=== PATIENT | female | born 1945 | race Caucasian/White ===

== ENCOUNTER 2017-08-11 17:22 | Emergency (ER) | payer OTHER ==
[2017-08-11 17:35] VITALS: BP 147/67; PULSE 79; TEMP 98.5; BMI 30.2
--- NOTE | 2017-08-11 18:09 | PDOC ---
History of Present Illness - General Chief Complaint: Injury Stated Complaint: FELL ON HEAD ON MONDAY Time Seen by Provider: 08/11/17 17:24 History Source: Patient Exam Limitations: No Limitations - History of Present Illness Initial Comments: 08/11/17 18:03 Patient is a 72F with history of bipolar disorder, possible dementia, HTN, and bladder cancer here today complaining of a headache after a fall. She fell at 6am on Monday, 60 hours ago, and hit her head. She denies neck pain, loss of consciousness memory loss, vomiting after the event. She states that it was a mechanical fall because she lost her balance after taking klonopin. She states that she's been able to walk since the event. She denies any prodromal symptoms , including chest pain, shortness of breath, and dizziness. Past History - Past Medical History Allergies/Adverse Reactions: Allergies Allergy/AdvReac Type Severity Reaction Status Date / Time No Known Allergies Allergy Verified 08/11/17 17:39 Home Medications: Ambulatory Orders Lamotrigine [Lamictal] 200 mg PO HS 10/15/12 Metoprolol Succinate [Toprol XL] 50 mg PO DAILY 10/15/12 Raloxifene HCl [Evista] 60 mg PO DAILY 10/15/12 Venlafaxine HCl [Effexor] 25 mg PO HS 10/15/12 Venlafaxine HCl [Effexor] 200 mg PO AM 10/15/12 Zolpidem Tartrate [Ambien] 12.5 mg PO HS 10/15/12 Clonazepam [Klonopin] 1 mg PO TID 08/11/17 Cancer: Yes (BLADDER CA) COPD: No HTN: Yes Psychiatric Problems: Yes (BIPOLAR,ANXIETY) - Surgical History Abdominal Surgery: Yes (HIATAL HERNIA, BLADDER CA PROCEDURE) - Suicide/Smoking/Psychosocial Hx Smoking Status: No Smoking History: Never smoked Have you smoked in the past 12 months: No Number of Cigarettes Smoked Daily: 0 Information on smoking cessation initiated: No Hx Alcohol Use: No Drug/Substance Use Hx: No Substance Use Type: None Review of Systems - Review of Systems Comments:: 08/11/17 18:16 GENERAL/CONSTITUTIONAL: No fever or chills. No weakness. HEAD, EYES, EARS, NOSE AND THROAT: No change in vision. No sore throat. CARDIOVASCULAR: No chest pain or shortness of breath RESPIRATORY: No cough, wheezing, or hemoptysis. GASTROINTESTINAL: No nausea, vomiting, diarrhea or constipation. GENITOURINARY: No dysuria, or change in urination. MUSCULOSKELETAL: No joint or muscle swelling or pain. No neck or back pain. SKIN: No rash NEUROLOGIC: Positive for headache. Negative for vertigo, loss of consciousness, or change in strength/sensation. ENDOCRINE: No increased thirst. No abnormal weight change HEMATOLOGIC/LYMPHATIC: No anemia, easy bleeding, or history of blood clots. ALLERGIC/IMMUNOLOGIC: No hives or skin allergy. *Physical Exam - Vital Signs Last Vital Signs Temp Pulse Resp BP Pulse Ox 98.5 F 79 18 147/67 99 08/11/17 17:23 08/11/17 17:23 08/11/17 17:23 08/11/17 17:23 08/11/17 17:23 - Physical Exam Comments: 08/11/17 18:17 GENERAL: Awake, alert, and fully oriented, in no acute distress HEAD: No signs of trauma, normocephalic, atraumatic EYES: PERRLA, EOMI, sclera anicteric, conjunctiva clear ENT: Auricles normal inspection, hearing grossly normal, nares patent, oropharynx clear without exudates. Moist mucosa NECK: Normal ROM, supple, no lymphadenopathy, JVD, or masses, nontender midline LUNGS: No distress, speaks full sentences, clear to auscultation bilaterally HEART: Regular rate and rhythm, normal S1 and S2, no murmurs, rubs or gallops, peripheral pulses normal and equal bilaterally. ABDOMEN: Soft, nontender, normoactive bowel sounds. No guarding, no rebound. No masses EXTREMITIES: Normal inspection, Normal range of motion, no edema. No clubbing or cyanosis. NEUROLOGICAL: Cranial nerves II through XII grossly intact. Normal speech, normal gait, no focal sensorimotor deficits SKIN: Warm, Dry, normal turgor, no rashes or lesions noted. ED Treatment Course - RADIOLOGY Radiology Studies Ordered: Category Date Time Status HEAD CT WITHOUT CONTRAST [CT] Stat CT Scan 08/11/17 17:42 Taken Medical Decision Making - Medical Decision Making 08/11/17 18:17 Patient is a 72F with history of bipolar disorder, HTN and bladder cancer here today complaining of a headache after a fall. Vital signs stable and normal. Neuro exam reassuring. Suspect patient is anxious about possible problems with her head. Has good outpatient follow up with neurology. Will likely discharge. 08/11/17 18:[address] negative. Will discharge patient with instructions to follow up with her neurologist and return precautions. *DC/Admit/Observation/Transfer Diagnosis at time of Disposition: Closed head injury Qualifiers: Encounter type: initial encounter Qualified Code(s): S09.90XA - Unspecified injury of head, initial encounter - Discharge Dispostion Disposition: HOME Condition at time of disposition: Good - Referrals - Patient Instructions Printed Discharge Instructions: DI for Closed Head Injury Additional Instructions: Your head CT is negative. Please follow up with your doctors. - Post Discharge Activity
--- NOTE | 2017-08-11 18:16 | PDOC ---
Attending Attestation - Resident Resident Name: Ap Maciel - ED Attending Attestation I have performed the following: I have examined & evaluated the patient, The case was reviewed & discussed with the resident, I agree w/resident's findings & plan, Exceptions are as noted - HPI HPI: 08/11/17 18:16 72 year old female with past medical history of hypertension, anxiety, bipolar disorder presents with mechanical fall. The patient fell 3 days ago. States she hit her head but no loss of conscious. Has had a mild frontal headache but no other symptoms. No numbness or weakness. However, patient felt anxious and wanted it checked out. - Physicial Exam PE: 08/11/17 18:17 GENERAL: Awake, alert, and fully oriented, in no acute distress. HEAD: No signs of trauma EYES: PERRLA, EOMI, sclera anicteric, conjunctiva clear ENT: Auricles normal inspection, hearing grossly normal, nares patent, NECK: Normal ROM, supple EXTREMITIES: Normal range of motion, no edema. NEUROLOGICAL: Cranial nerves II through XII grossly intact. Normal speech, normal gait - Medical Decision Making 08/11/17 18:17 Vital Signs Temp Pulse Resp BP Pulse Ox 98.5 F 79 18 147/67 99 08/11/17 17:23 08/11/17 17:23 08/11/17 17:23 08/11/17 17:23 08/11/17 17:23 I suspect the patient is anxious from the fall. We'll obtain a head CT to rule out intracranial hemorrhage. If workup is negative, the patient can be discharged home with outpatient follow-up.
--- NOTE | 2017-08-11 18:34 | PDOC ---
*Physical Exam - Vital Signs Last Vital Signs Temp Pulse Resp BP Pulse Ox 98.5 F 79 18 147/67 99 08/11/17 17:23 08/11/17 17:23 08/11/17 17:23 08/11/17 17:23 08/11/17 17:23 Medical Decision Making - Medical Decision Making 08/11/17 18:[address] negative. Pt feels reassured I discussed the physical exam findings, ancillary test results and final diagnoses with the patient. I answered all of the patient's questions. The patient was satisfied with the care received and felt comfortable with the discharge plan and treatment plan. The patient will call their primary care physician within 24 hours to arrange follow-up and will return to the Emergency Department with any new, persistant or worsening symptoms. *DC/Admit/Observation/Transfer Diagnosis at time of Disposition: Closed head injury Qualifiers: Encounter type: initial encounter Qualified Code(s): S09.90XA - Unspecified injury of head, initial encounter - Discharge Dispostion Disposition: HOME Condition at time of disposition: Good Admit: No - Referrals - Patient Instructions Printed Discharge Instructions: DI for Closed Head Injury Additional Instructions: Your head CT is negative. Please follow up with your doctors. - Post Discharge Activity
== END 2017-08-11 19:00 | disposition home or self-care (01) ==
LOC: FER 17:22
DX: S09.90XA Unspecified injury of head, initial encounter (principal); W18.39XA Other fall on same level, initial encounter; Y93.89 Activity, other specified; Y92.9 Unspecified place or not applicable; I10 Essential (primary) hypertension; F31.9 Bipolar disorder, unspecified; Z85.51 Personal history of malignant neoplasm of bladder
CPT/HCPCS: 70450-TC; 99281-25

== ENCOUNTER 2018-03-28 17:23 | Emergency (ER) | payer OTHER ==
[2018-03-28 17:29] VITALS: BP 129/87; PULSE 68; TEMP 97.9; BMI 29.2
--- NOTE | 2018-03-28 17:36 | PDOC ---
History of Present Illness - General History Source: Patient Exam Limitations: No Limitations - History of Present Illness Initial Comments: 03/28/18 17:43 The patient is a 73 year old female, with a significant past medical history of Bipolar disorder and HTN, who presents to the emergency department s/p mechanical fall. As per patient, she fell yesterday backwards onto a bicycle near her bed hitting her back. The patient endorses pain with deep inspiration and coughing to her upper left thoracic back. She denies recent fevers, chills, headache or dizziness. She denies recent nausea, vomit, diarrhea or constipation. She denies recent dysuria, frequency, urgency or hematuria. She denies recent chest pain. Allergies: NKA Social history: Nonsmoker. Denies EtOH use and recreational drug use. Familial History: Reviewed and noncontributory. <Sarah Saldaña - Last Filed: 03/28/18 17:58> <Paddy Vincent - Last Filed: 03/28/18 18:08> - General Chief Complaint: Shortness of Breath Stated Complaint: pain with cough and deep breath s/p fall Time Seen by Provider: 03/28/18 17:35 Past History <Sarah Saldaña - Last Filed: 03/28/18 17:58> - Past Medical History Cancer: Yes (BLADDER CA) COPD: No GI Disorders: Yes (Hiatal hernia) HTN: Yes Psychiatric Problems: Yes (BIPOLAR,ANXIETY) - Surgical History Abdominal Surgery: Yes (HIATAL HERNIA, BLADDER CA PROCEDURE) - Suicide/Smoking/Psychosocial Hx Smoking Status: No Smoking History: Never smoked Have you smoked in the past 12 months: No Number of Cigarettes Smoked Daily: 0 Hx Alcohol Use: No Drug/Substance Use Hx: No Substance Use Type: None <Paddy Vincent - Last Filed: 03/28/18 18:08> - Past Medical History Allergies/Adverse Reactions: Allergies Allergy/AdvReac Type Severity Reaction Status Date / Time No Known Allergies Allergy Verified 03/28/18 17:25 Home Medications: Ambulatory Orders Lamotrigine [Lamictal] 400 mg PO HS 10/15/12 Metoprolol Succinate [Toprol XL] 50 mg PO DAILY 10/15/12 Raloxifene HCl [Evista] 60 mg PO DAILY 10/15/12 Venlafaxine HCl [Effexor] 75 mg PO HS 10/15/12 Venlafaxine HCl [Effexor] 150 mg PO AM 10/15/12 Zolpidem Tartrate [Ambien] 20 mg PO HS 10/15/12 Clonazepam [Klonopin] 1 mg PO TID PRN 08/11/17 Review of Systems - Review of Systems Able to Perform ROS?: Yes Comments:: 03/28/18 17:43 CONSTITUTIONAL: Absent: fever, no chills, no fatigue EYES: Absent: visual changes ENT: Absent: ear pain, no sore throat CARDIOVASCULAR: Absent: chest pain, no palpitations RESPIRATORY: Absent: cough, no SOB GI: Absent: abdominal pain, no nausea, no vomiting, no constipation, no diarrhea GENITOURINARY: Absent: dysuria, no frequency, no hematuria MUSKULOSKELETAL: Present: Back pain on deep inspiration and cough. Absent: no arthralgia, no myalgia SKIN: Absent: rash NEURO: Absent: headache All Other Systems: Reviewed and Negative <Sarah Saldaña - Last Filed: 03/28/18 17:58> *Physical Exam - Vital Signs Last Vital Signs Temp Pulse Resp BP Pulse Ox 97.9 F 68 16 129/87 97 03/28/18 17:24 03/28/18 17:24 03/28/18 17:32 03/28/18 17:24 03/28/18 17:32 - Physical Exam Comments: 03/28/18 17:58 GENERAL: Well developed, well nourished. Awake and alert. No acute distress. HEENT: Normocephalic, atraumatic. PERRLA, EOMI. No conjunctival pallor. Sclera are non- icteric. Moist mucous membranes. Oropharynx is clear. NECK: Supple. Full ROM. No JVD. Carotid pulses 2+ and symmetric, without bruits. No thyromegaly. No lymphadenopathy. +CARDIOVASCULAR: Mild to moderate tenderness to the posterior chest wall Regular rate and rhythm. No murmurs, rubs, or gallops. Distal pulses are 2+ and symmetric. PULMONARY: No rib deformity or crepitus. Full breath sounds with mild splinting with deep inhalation. No evidence of respiratory distress. Lungs clear to auscultation bilaterally. No wheezing, rales or rhonchi. ABDOMINAL: Soft. Non-tender. Non-distended. No rebound or guarding. No organomegaly. Normoactive bowel sounds. MUSCULOSKELETAL Normal range of motion at all joints. No bony deformities or tenderness. No CVA tenderness. EXTREMITIES: No limited ROM of the hips or lower extremities. No pain with weight bearing. No cyanosis. No clubbing. No edema. No calf tenderness. +SKIN: Extensive ecchymosis over the sacrum with subcutaneous hematoma and minimal tenderness. Warm and dry. Normal capillary refill. No rashes. No jaundice. NEUROLOGICAL: Alert, awake, appropriate. Cranial nerves 2-12 intact. No deficits to light touch and temperature in face, upper extremities and lower extremities. No motor deficits in the in face, upper extremities and lower extremities. Normoreflexic in the upper and lower extremities. Normal speech. Toes are down- going bilaterally. Gait is normal without ataxia. PSYCHIATRIC: Cooperative. Good eye contact. Appropriate mood and affect. <Sarah Saldaña - Last Filed: 03/28/18 17:58> - Vital Signs Last Vital Signs Temp Pulse Resp BP Pulse Ox 97.9 F 68 16 129/87 97 03/28/18 17:24 03/28/18 17:24 03/28/18 17:32 03/28/18 17:24 03/28/18 17:32 <Paddy Vincent - Last Filed: 03/28/18 18:08> *DC/Admit/Observation/Transfer - Attestations Scribe Attestion: 03/28/18 17:43 Documentation prepared by Sarah Saldaña, acting as medical office worker for Paddy Rosales MD. <Sarah Saldaña - Last Filed: 03/28/18 17:58> - Discharge Dispostion Decision to Admit order: No <Paddy Vincent - Last Filed: 03/28/18 18:08> Diagnosis at time of Disposition: Contusion of ribs Qualifiers: Encounter type: initial encounter Laterality: left Qualified Code(s): S20.212A - Contusion of left front wall of thorax, initial encounter - Discharge Dispostion Disposition: HOME Condition at time of disposition: Stable - Patient Instructions Printed Discharge Instructions: DI for Rib Contusion Additional Instructions: Rest, ice, deep breathing exercises, medication as needed. See primary physician in 3 days for recheck. Return to the ER immediately if there is fever , productive cough, or shortness of breath.
== END 2018-03-28 18:53 | disposition home or self-care (01) ==
LOC: FER 17:23
DX: S20.212A Contusion of left front wall of thorax, initial encounter (principal); W18.39XA Other fall on same level, initial encounter; Y93.89 Activity, other specified; Y92.003 Bedroom of unspecified non-institutional (private) residence as the place of occurrence of the external cause; F31.9 Bipolar disorder, unspecified; I10 Essential (primary) hypertension; Z85.51 Personal history of malignant neoplasm of bladder
CPT/HCPCS: 71101-TC-FY; 99282-25

== ENCOUNTER 2018-07-09 11:06 | Emergency (ER) | payer OTHER ==
[2018-07-09 11:32] VITALS: TEMP 97.5; BMI 29.0
--- NOTE | 2018-07-09 11:44 | PDOC ---
History of Present Illness - General Chief Complaint: Injury Stated Complaint: FELL FORWARD DOWN STAIRS Time Seen by Provider: 07/09/18 11:11 - History of Present Illness Initial Comments: 07/09/18 12:07 The patient is a 73 year old female with a PMH of anxiety, HTN, BPD, Bladder CA (s/p resection), ventral hernia, inguinal hernia who presents c/o lower back following a fall this morning. Patient states she was walking down a set of stairs this morning when she lost her balance and fell sliding down 4-5 the stairs on her back and landing on her R side. Is unsure if she hit her head, denies any LOC. States she was ambulatory afterwards though she felt some lightheadedness and intermittent vertigo. Back pain is throbbing, constant, w/ o bladder/bowel incontinence. Notes she has a history of 4-5 falls over the last 2 years only one of which was mechanical. Denies any significant cardiac history or prior evaluation by a brand development manager including stress testing. The patient denies chest pain, shortness of breath, abdominal pain, nausea/ vomiting, diarrhea/constipation, dysuria/hematuria. Allergy: Ibuprofen Surgical: ventral hernia repair, inguinal hernia repair Social: lifetime non-smoker PMD: Dr. Alonso Krause M.D. ([facility]) As per EMR patient was last evaluated in our ED 04/11 for mechanical fall c/o upper back pain. X-ray negative for acute fracture and patient was discharged home with supportive care. Past History - Past Medical History Allergies/Adverse Reactions: Allergies Allergy/AdvReac Type Severity Reaction Status Date / Time ibuprofen AdvReac Nausea Verified 07/09/18 11:56 Home Medications: Ambulatory Orders Lamotrigine [Lamictal] 400 mg PO HS 10/15/12 Metoprolol Succinate [Toprol XL -] 50 mg PO DAILY 10/15/12 Raloxifene HCl [Evista] 60 mg PO DAILY 10/15/12 Venlafaxine HCl [Effexor] 75 mg PO HS 10/15/12 Venlafaxine HCl [Effexor] 150 mg PO AM 10/15/12 Zolpidem Tartrate [Ambien] 15 mg PO HS 10/15/12 Clonazepam [Klonopin] 0.5 mg PO TID PRN 02/16/18 Cancer: Yes (BLADDER CA) COPD: No GI Disorders: Yes (Hiatal hernia) HTN: Yes Psychiatric Problems: Yes (BIPOLAR,ANXIETY) - Surgical History Abdominal Surgery: Yes (HIATAL HERNIA, BLADDER CA PROCEDURE) - Suicide/Smoking/Psychosocial Hx Smoking Status: No Smoking History: Never smoked Have you smoked in the past 12 months: No Number of Cigarettes Smoked Daily: 0 Hx Alcohol Use: No Drug/Substance Use Hx: No Substance Use Type: None Review of Systems - Review of Systems Constitutional: No: Chills, Fever HEENTM: No: Recent change in vision Respiratory: No: Cough, Shortness of Breath, Wheezing, Hemoptysis Cardiac (ROS): No: Chest Pain, Lightheadedness, Palpitations, Syncope ABD/GI: No: Constipated, Diarrhea, Nausea, Vomiting : No: Burning, Dysuria *Physical Exam - Vital Signs Last Vital Signs Temp Pulse Resp BP Pulse Ox 97.5 F L 73 18 127/64 96 07/09/18 11:07 07/09/18 11:07 07/09/18 11:07 07/09/18 11:07 07/09/18 11:07 - Physical Exam General Appearance: Yes: Nourished, Appropriately Dressed HEENT: positive: Normal Voice, Hearing Grossly Normal Neck: positive: Trachea midline, Supple Respiratory/Chest: positive: Lungs Clear, Normal Breath Sounds Musculoskeletal: positive: Other (pelvis stable, no C-spine TTP; TTP @ midline upper lumbar spine; ambulatory (non antalgic)) Extremity: positive: Normal Capillary Refill, Normal Inspection, Pelvis Stable Integumentary: positive: Normal Color, Dry, Warm Neurologic: positive: Fully Oriented, Alert. negative: Confused, Disoriented Moderate Sedation - Procedure Monitoring Vital Signs: Procedure Monitoring Vital Signs Temperature 97.5 F L 07/09/18 11:07 Pulse Rate 73 07/09/18 11:07 Respiratory Rate 18 07/09/18 11:07 Blood Pressure 127/64 07/09/18 11:07 O2 Sat by Pulse Oximetry (%) 96 07/09/18 11:07 Heart Score/ECG Review - ECG Impressions Comment:: 07/09/18 13:14 EKG shows NSR HR 72, normal intervals, no deviations, no DAVE/STD/TWI, good R wave progression V1-V6, non-ischemic ED Treatment Course - LABORATORY CBC & Chemistry Diagram: 07/09/18 12:45 07/09/18 12:45 Medical Decision Making - Medical Decision Making 07/09/18 12:17 73 year old female s/p fall with unknown head trauma/LOC. A&O x3, moves all 4 extremities, no-C spine, L/T/S midline spinal tenderness, mild lower back TTP. H/o 4-5 falls in the last 2 years. Fall etiology includes ischemic, infectious , cardiac (arrythmic) as well as polypharmacy (patient on a number of psych meds ). Will obtain head CT, basic labs, EKG, Troponin. Tylenol for pain control. Reassess. 07/09/18 13:12 Reassessed @ bedside Resting comfortably Pending CT EKG non-ischemic as documented in EKG section of EMR. 07/09/18 13:[address] negative Troponin (-) 07/09/18 15:06 CXR shows no consolidation/infiltrate/cardiomegaly. Lumbar XR pending Patient ambulatory around unit to bathroom. Patient now states she has 9 falls over the last 2 years; counseled to follow- up with PMD for further evaluation including referral to cardiology, neurology as well as review of her psychiatric medication side effects. 07/09/18 17:04 L-2 acute compression fracture. Patient given orthopedic spine follow-up, Tylenol for pain, return precautions and discharged home. I discussed the physical exam findings, ancillary test results and final diagnoses with the patient. I answered all of the patient's questions. The patient was satisfied with the care received and felt comfortable with the discharge plan and treatment plan. The patient will return to the Emergency Department with any new, persistent or worsening symptoms. *DC/Admit/Observation/Transfer Diagnosis at time of Disposition: Fall, Fracture of lumbar spine - Discharge Dispostion Disposition: HOME Condition at time of disposition: Good Decision to Admit order: No - Referrals Referrals: Alonso Krause MD [Primary Care Provider] - Damien Mcgregor MD [Staff Physician] - - Patient Instructions Printed Discharge Instructions: How to Prevent Falls Additional Instructions: You were evaluated today for a fall. An x-ray of your spine showed a compression fracture at your L-2 vertebrae. You need to follow up with an orthopedic spine doctor in the next 3 days. We have provided you with a referral or you can call your insurance company for a list of doctors. You can take Tylenol for your pain (up to 4000 mg daily) A cat scan of your head, x-rays of your chest your labs and an EKG of your heart rhythm showed no concerning findings. At this time, you are safe for discharge home. In addition to the orthopedic spine doctor, please make an appointment with your primary care doctor in the next 1 week to be evaluated for your repeated falls including possible evaluation by a brand development manager and neurologist. Your care is not complete until you are evaluated by your primary care doctor and an orthopedic spine doctor. Return to the Emergency Department for any new/worsening/concerning symptoms. - Post Discharge Activity
--- NOTE | 2018-07-09 11:55 | PDOC ---
Attending Attestation - Resident Resident Name: Lauren Fitzpatrick - ED Attending Attestation I have performed the following: I have examined & evaluated the patient, The case was reviewed & discussed with the resident, I agree w/resident's findings & plan, Exceptions are as noted - HPI HPI: 73 yo F history anxiety, HTN, bipolar, bladder CA s/p resection presents with low back pain s/p fall this morning. She states she had a mechanical fall- lost her balance while carrying multiple items in her hands. Denies LOC. She landed on her back and then onto her R side. Denies weakness, numbness. +Low back pain localizing to the center of her back. - Physicial Exam PE: GENERAL: Awake, alert, and fully oriented, in no acute distress HEAD: No signs of trauma EYES: PERRLA, EOMI, sclera anicteric, conjunctiva clear ENT: Auricles normal inspection, hearing grossly normal, nares patent, oropharynx clear without exudates. Moist mucosa NECK: Normal ROM, supple, no lymphadenopathy, JVD, or masses LUNGS: Breath sounds equal, clear to auscultation bilaterally. No wheezes, and no crackles HEART: Regular rate and rhythm, normal S1 and S2, no murmurs, rubs or gallops ABDOMEN: Soft, nontender, normoactive bowel sounds. No guarding, no rebound. No masses EXTREMITIES: Normal range of motion, no edema. No clubbing or cyanosis. No cords, erythema, or tenderness NEUROLOGICAL: Cranial nerves II through XII grossly intact. Normal speech, normal gait. Motor and sensation intact SKIN: Warm, Dry, normal turgor, no rashes or lesions noted. SPINE: +Midline tenderness L1-L2. - Medical Decision Making Pt is s/p mechanical fall, with low back pain. As she may have hit her head, will obtain CT to r/o ICH. Will obtain imaging of L-spine.
[2018-07-09 13:12] LABS: ALBUMIN 3.7 g/dl (3.5-5.0); ALK PHOS 83 U/L (32-92); ANION GAP 8 MMOL/L (8-16); BILIRUBIN,TOTAL 0.4 mg/dl (0.2-1.0); BLOOD UREA NITROGEN 22 mg/dl (7-18); CALCIUM 8.6 mg/dl (8.4-10.2); CHLORIDE 102 mmol/L (98-107); CO2 26 mmol/L (22-28); CREATININE 0.9 mg/dl (0.6-1.3); GLUCOSE,RANDOM 131 mg/dl (74-106); POTASSIUM 4.3 mmol/L (3.5-5.1); SGOT/AST 24 U/L (10-42); SGPT/ALT 15 U/L (10-40); SODIUM 136 mmol/L (136-145); TOT PROT 6.3 g/dl (6.4-8.3)
[2018-07-09 13:14] LABS: BASO % 1.5 % (0-2.0); HEMATOCRIT 42.4 % (32.4-45.2); HEMOGLOBIN 13.9 GM/dl (10.7-15.3); LYMPH % 14.9 % (8-40); MCH 29.6 pg (25.7-33.7); MCHC 32.8 g/dl (32.0-36.0); MEAN CELL VOLUME 90.3 fl (80-96); MEAN PLT VOLUME 9.1 fl (7.5-11.1); MONO % 9.4 % (3.8-10.2); NEUT % 74.2 % (42.8-82.8); PLATELET COUNT 307 K/MM3 (134-434); RDW 13.6 % (11.6-15.6); WHITE BLOOD COUNT 9.3 K/mm3 (4.0-10.8)
--- NOTE | 2018-07-09 14:24 | EKG ---
Test Reason : Blood Pressure : / mmHG Vent. Rate : 072 BPM Atrial Rate : 072 BPM P-R Int : 162 ms QRS Dur : 076 ms QT Int : 418 ms P-R-T Axes : 051 -01 010 degrees QTc Int : 457 ms NORMAL SINUS RHYTHM NORMAL ECG NO PREVIOUS ECGS AVAILABLE Confirmed by ALFREDO DOSHI MD ([id number]) on 07/09/2018 2:24:31 PM Referred By: Jerrica MARIO Confirmed By:ALFREDO DOSHI MD
[2018-07-09 15:07] VITALS: BP 150/86; PULSE 76
[2018-07-09] MEDS ORDERED: ACETAMINOPHEN 650 MG/20.3 ML ORAL SOLUTION (CUPS) PO ONE (16:49)
[2018-07-09] MEDS ORDERED: ACETAMINOPHEN 500 MG TABLET (FP) PO ONE (16:50)
[2018-07-09] MEDS ORDERED: ACETAMINOPHEN 500 MG TABLET (FP) ONE (16:51)
== END 2018-07-09 17:20 | disposition home or self-care (01) ==
LOC: FER 11:06
DX: S32.001A Stable burst fracture of unspecified lumbar vertebra, initial encounter for closed fracture (principal); W10.9XXA Fall (on) (from) unspecified stairs and steps, initial encounter; Y93.89 Activity, other specified; Y92.89 Other specified places as the place of occurrence of the external cause; I10 Essential (primary) hypertension; F41.9 Anxiety disorder, unspecified; P27.1 Bronchopulmonary dysplasia originating in the perinatal period; K43.9 Ventral hernia without obstruction or gangrene; F31.9 Bipolar disorder, unspecified; Z85.51 Personal history of malignant neoplasm of bladder
CPT/HCPCS: 36415; 70450-TC; 71045-TC-FY; 72100-TC-FY; 80053; 82550; 84484; 85025; 93005; 99283-25

== ENCOUNTER 2018-12-05 02:19 | Emergency (ER) | payer OTHER ==
[2018-12-05 02:29] VITALS: PULSE 67; TEMP 98; BMI 29.2
--- NOTE | 2018-12-05 02:51 | PDOC ---
History of Present Illness - General Chief Complaint: Blood Pressure Problem Stated Complaint: HIGH BLOOD PRESSURE Time Seen by Provider: 12/05/18 02:28 - History of Present Illness Initial Comments: 12/05/18 02:53 This 73-year-old woman with a history of HTN/anxiety/bipolar disorder/bladder Ca (s/p resection) presents with approximately 12 hours of midsternal chest discomfort. She also has noted elevation of her blood pressure when measured by home monitor over the last several hours. Patient states that she was walking around "in town" in the sun this afternoon, not drinking much water. She stopped to have a pedicure and is this was being done, she began to feel lightheaded and sweaty. She called her and was brought home. Around this time she began to have midsternal chest pressure(7/10). She has had this discomfort in the past but cannot characterize what triggers it or what makes it worse. She also developed left upper arm discomfort around the same time. Both the chest and upper arm discomfort have persisted although somewhat improved (chest pressure currently5/10). She denies shortness of breath/nausea/ any further diaphoresis. When the patient arrived home she ate salty crackers ( patient states she thought she needed salt because she was sweating). Through the evening, she admits to being anxious because of the persistent discomfort. She measured her blood pressure(which she states is generally in the 130s/80 range) multiple times. It was persistently elevated through the evening. At 12 midnight, second dose of metoprolol was taken (first dose of 50 mg taken in the morning as per usual routine) A few months ago, patient noted that she was increasingly short of breath with exertion (for example, walking up hill carrying groceries). She was evaluated by [facility] ([facility], patient cannot recall name) and nuclear contrast stress test planned (December 22). No history of chest pain with exertion. No previous history of cardiac stress testing Cardiac risk factors: Positive for HTN,obesity/no DM, significant FH, HLD, smoking Patient is taking her medications as prescribed except for the second dose of metoprolol this evening. Allergy: Ibuprofen (side effect rather than allergy-epigastric discomfort/nausea ) PMH: as above , also IBS with frequent bloating/diarrhea Surgical: ventral hernia repair, inguinal hernia repair Social: lifetime non-smoker PMD: Dr. Alonso Krause M.D. ([facility]) Past History - Past Medical History Allergies/Adverse Reactions: Allergies Allergy/AdvReac Type Severity Reaction Status Date / Time ibuprofen AdvReac Nausea Verified 07/09/18 11:56 Home Medications: Ambulatory Orders Lamotrigine [Lamictal] 400 mg PO HS 10/15/12 Metoprolol Succinate [Toprol XL -] 50 mg PO DAILY 10/15/12 Raloxifene HCl [Evista] 60 mg PO DAILY 10/15/12 Venlafaxine HCl [Effexor] 75 mg PO HS 10/15/12 Venlafaxine HCl [Effexor] 150 mg PO AM 10/15/12 Zolpidem Tartrate [Ambien] 15 mg PO HS 10/15/12 Clonazepam [Klonopin] 0.5 mg PO TID PRN 08/11/17 Cancer: Yes (BLADDER CA) COPD: No GI Disorders: Yes (Hiatal hernia) HTN: Yes Psychiatric Problems: Yes (BIPOLAR,ANXIETY) - Surgical History Abdominal Surgery: Yes (HIATAL HERNIA, BLADDER CA PROCEDURE) - Suicide/Smoking/Psychosocial Hx Smoking Status: No Smoking History: Former smoker Have you smoked in the past 12 months: No Number of Cigarettes Smoked Daily: 0 Information on smoking cessation initiated: No Hx Alcohol Use: No Drug/Substance Use Hx: No Substance Use Type: None Review of Systems - Review of Systems Able to Perform ROS?: Yes Comments:: 12 point review of systems is negative except for what is noted in the history of present illness *Physical Exam - Vital Signs Last Vital Signs Temp Pulse Resp BP Pulse Ox 98 F 67 20 159/83 100 12/05/18 02:26 12/05/18 02:26 12/05/18 02:26 12/05/18 03:48 12/05/18 02:26 - Physical Exam Comments: GENERAL: Adult female, anxious but alert and orientedX3; vital signs as noted HR 67/min, BP 182/97 HEAD: Normal with no signs of trauma. EYES: PERRLA, EOMI, sclera anicteric, conjunctiva clear. ENT: Ears normal, nares patent, oropharynx clear without exudates. Dry mucous membranes. NECK: Normal range of motion, supple without lymphadenopathy, JVD, or masses. LUNGS: Breath sounds equal, clear to auscultation bilaterally. No wheezes, and no crackles. HEART:Regular rate and rhythm, normal S1 and S2 without murmur, rub or gallop. ABDOMEN:.Obese/protuberant, soft normal bowel sounds No guarding,tenderness or rebound.No masses No distention. EXTREMITIES: Normal range of motion, no edema. No clubbing or cyanosis. No erythema, or tenderness. NEUROLOGICAL: Cranial nerves II through XII grossly intact. Normal speech. No focal neurological deficits. MUSCULOSKELETAL: Back non-tender to palpation, no CVA tenderness SKIN: Warm, Dry, normal turgor, no rashes or lesions noted Twelve-lead electrocardiogram is performed and interpreted by me: Normal sinus rhythm at 61 meet beats per minute. [place], intervals and waveforms are all normal. No evidence of acute ST or T-wave abnormalities. No evidence of acute cardiac arrhythmia Tracing is essentially unchanged from previous twelve-lead electrocardiogram dated 07/09/18 Heart Score/ECG Review - History History: Slightly suspicious - Electrocardiogram EKG: Normal - Age Age: >/= 65 - Risk Factors Risk Factors Heart Score: Yes Hx Hypertension, Yes Hx Obesity Based on the list above the patient has:: 1-2 risk factors - Troponin Troponin: </= normal limit - Score Heart Score - Total: 3 ED Treatment Course - LABORATORY CBC & Chemistry Diagram: 12/05/18 02:45 12/05/18 02:45 - ADDITIONAL ORDERS Additional order review: Laboratory Results 12/05/18 12/05/18 02:45 02:45 Sodium 139 Potassium 4.3 Chloride 106 Carbon Dioxide 28 Anion Gap 5 L BUN 20.0 H Creatinine 0.9 Est GFR (CKD-EPI)AfAm 74.56 Est GFR (CKD-EPI)NonAf 64.33 Random Glucose 86 Calcium 8.5 Total Bilirubin 0.3 AST 18 ALT 19 Alkaline Phosphatase 102 Creatine Kinase 68 Troponin I < 0.02 Total Protein 6.6 Albumin 3.6 12/05/18 02:45 RBC 4.51 MCV 89.5 MCHC 34.0 RDW 14.1 MPV 8.6 Neutrophils % 59.2 Lymphocytes % 30.8 Monocytes % 9.5 Eosinophils % 0.3 Basophils % 0.2 - Medications Given in the ED: ED Medications Discontinued Medications Generic Name Dose Route Start Last Admin Trade Name Freq PRN Reason Stop Dose Admin Sodium Chloride 500 mls @ 500 mls/hr 12/05/18 03:43 12/05/18 03:47 Normal Saline - IV 12/05/18 04:42 500 mls/hr ASDIR STA Administration Medical Decision Making - Medical Decision Making 12/05/18 04:06 Laboratory evaluation normal except for evidence of prerenal azotemia with a BUN of 20 and a creatinine of 0.9. Troponin is not elevated at less than 0.02 Repeat vital signs reveal blood pressure decreasing to 157/83 Chest pressure sensation has markedly decreased; patient states that she is thirsty and drinks several small cups of water. Normal saline bolus of 500 mL given IV Patient initially had some lightheadedness when sitting up from supine position. However, she was able to ambulate without ataxia or other gait abnormality to the bathroom where she voided. Afterwards, she stated that her lightheadedness had markedly improved as she walked around. No recurrence of chest pressure; no new symptoms have developed. Patient will be discharged with instructions to rest and avoid strenuous activity outdoors for the next few days. She should continue her medications as prescribed. She states that her doctor had suggested that she decrease her Ambien dose from 15 mg to 10 mg (patient states that she has [id number] nocturnal eating when she takes Ambien and she wants to lose weight) and to add 25 mg of Benadryl. Otherwise, she should take her medications as prescribed. She should contact her PMD, Dr. Virgen later on today and arrange follow-up within the next few days. Meanwhile, the patient has any recurrence of her chest pressure , persistent elevated blood pressure or lightheadedness that is severe, she should return to the ER *DC/Admit/Observation/Transfer Diagnosis at time of Disposition: Atypical chest pain, Dehydration, Lightheadedness - Discharge Dispostion Disposition: HOME Condition at time of disposition: Stable - Referrals - Patient Instructions Printed Discharge Instructions: Dehydration Additional Instructions: Continue medications as prescribed except Ambien Decrease Ambien to 10 mg as suggested by your doctor and add Benadryl 25 mg prior to going to sleep Drink plenty of water and eat regular meals Call 's office today to arrange follow-up within the next few days Avoid strenuous activity outdoors for the next several days Follow-up with [facility] as scheduled Return to ER if you have had persistent chest pain/persistent high blood pressure/severe lightheadedness or develop shortness of breath - Post Discharge Activity
[2018-12-05 03:23] LABS: BASO % 0.2 % (0-2.0); EOS % 0.3 % (0-4.5); HEMATOCRIT 40.4 % (32.4-45.2); HEMOGLOBIN 13.7 GM/dL (10.7-15.3); LYMPH % 30.8 % (8-40); MCH 30.5 pg (25.7-33.7); MEAN CELL VOLUME 89.5 fl (80-96); MEAN PLT VOLUME 8.6 fl (7.5-11.1); MONO % 9.5 % (3.8-10.2); NEUT % 59.2 % (42.8-82.8); PLATELET COUNT 305 K/MM3 (134-434); RBC 4.51 M/mm3 (3.60-5.2); RDW 14.1 % (11.6-15.6); WHITE BLOOD COUNT 7.2 K/mm3 (4.0-10.0)
[2018-12-05 03:34] LABS: ALBUMIN 3.6 g/dl (3.4-5.0); BILIRUBIN,TOTAL 0.3 mg/dL (0.2-1); CALCIUM 8.5 mg/dL (8.5-10.1); CREATININE 0.9 mg/dL (0.55-1.3); POTASSIUM 4.3 mmol/L (3.5-5.1); TOT PROT 6.6 g/dl (6.4-8.2)
[2018-12-05] MEDS ORDERED: SODIUM CHLORIDE 500 ML IV STA (03:43)
[2018-12-05 03:48] VITALS: BP 159/83
--- NOTE | 2018-12-05 08:46 | EKG ---
Test Reason : Blood Pressure : / mmHG Vent. Rate : 061 BPM Atrial Rate : 061 BPM P-R Int : 160 ms QRS Dur : 080 ms QT Int : 418 ms P-R-T Axes : 038 -05 006 degrees QTc Int : 420 ms NORMAL SINUS RHYTHM MODERATE VOLTAGE CRITERIA FOR LVH, MAY BE NORMAL VARIANT BORDERLINE ECG WHEN COMPARED WITH ECG OF 09-JUL-2018 13:05, NO SIGNIFICANT CHANGE WAS FOUND Confirmed by CAMILO OVIEDO, BRITNEY ([id number]) on 12/05/2018 8:45:23 AM Referred By: CIERA CASILLAS Confirmed By:BRITNEY PAGE MD
== END 2018-12-05 04:30 | disposition home or self-care (01) ==
LOC: FER 02:19
PROC: 3E0337Z Introduction of Electrolytic and Water Balance Substance into Peripheral Vein, Percutaneous Approach (ICD-10-PCS; principal; 2018-12-05)
DX: R07.89 Other chest pain (principal); R42 Dizziness and giddiness; E86.0 Dehydration; I10 Essential (primary) hypertension; F41.9 Anxiety disorder, unspecified; F31.9 Bipolar disorder, unspecified; Z85.51 Personal history of malignant neoplasm of bladder; Z85.89 Personal history of malignant neoplasm of other organs and systems
CPT/HCPCS: 36415; 80053; 82550; 84484; 85025; 93005; 96360; 99282-25

== ENCOUNTER 2019-06-25 16:02 | Emergency (ER) | payer OTHER ==
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
[2019-06-25 16:24] VITALS: BP 158/88; PULSE 66; TEMP 97.7; BMI 30.2
[2019-06-25] MEDS ORDERED: amLODIPine BESYLATE 5 MG TABLET (FP) PO ONE (17:09)
[2019-06-25] MEDS ORDERED: amLODIPine BESYLATE 5 MG TABLET (FP) ONE (17:14)
== END 2019-06-25 17:24 | disposition home or self-care (01) ==
LOC: FER 16:02
DX: I10 Essential (primary) hypertension (principal); Z88.8 Allergy status to other drugs, medicaments and biological substances; Z87.891 Personal history of nicotine dependence; F31.9 Bipolar disorder, unspecified; K92.9 Disease of digestive system, unspecified; Z85.51 Personal history of malignant neoplasm of bladder
CPT/HCPCS: 99281-25

== ENCOUNTER 2020-11-12 16:58 | Emergency (ER) | payer OTHER ==
[2020-11-12 17:23] VITALS: TEMP 97.8; BMI 27.8
[2020-11-12] MEDS ORDERED: ACETAMINOPHEN 325 MG TABLET (FP) PO ONE (17:31)
[2020-11-12] MEDS ORDERED: ACETAMINOPHEN 325 MG TABLET (FP) ONE (17:33)
[2020-11-12] MEDS ORDERED: MECLIZINE HCL 25 MG TABLET (FP) PO ONE (17:35)
[2020-11-12 18:01] LABS: BASO % 1.4 % (0-2.0); EOS % 2.5 % (0-4.5); HEMATOCRIT 44.1 % (32.4-45.2); HEMOGLOBIN 14.6 GM/dl (10.7-15.3); LYMPH % 22.3 % (8-40); MCH 30.1 pg (25.7-33.7); MCHC 33.1 g/dl (32.0-36.0); MEAN CELL VOLUME 90.9 fl (80-96); MEAN PLT VOLUME 8.5 fl (7.5-11.1); MONO % 7.7 % (3.8-10.2); NEUT % 66.1 % (42.8-82.8); PLATELET COUNT 332 K/MM3 (134-434); RBC 4.86 M/mm3 (3.60-5.2); RDW 13.7 % (11.6-15.6); WHITE BLOOD COUNT 6.4 K/mm3 (4.0-10.8)
[2020-11-12 18:12] LABS: ALBUMIN 3.9 g/dl (3.4-5.0); ALK PHOS 79 U/L (45-117); ANION GAP 6 MMOL/L (8-16); BILIRUBIN,TOTAL 0.6 mg/dl (0.2-1); CALCIUM 8.8 mg/dl (8.5-10); CHLORIDE 105 mmol/L (98-107); CO2 27 mmol/L (21-32); CREATININE 0.9 mg/dl (0.55-1.3); GLUCOSE,RANDOM 86 mg/dl (74-106); MAGNESIUM 2.1 mg/dL (1.8-2.4); PHOSPHOROUS 3.9 mg/dl (2.5-4.9); SGOT/AST 15 U/L (15-37); SGPT/ALT 13 U/L (13-61); SODIUM 138 mmol/L (136-145); TOT PROT 6.3 g/dl (6.4-8.2)
[2020-11-12] MEDS ORDERED: MECLIZINE HCL 25 MG TABLET (FP) ONE (18:19)
[2020-11-12] MEDS ORDERED: SODIUM CHLORIDE 0.9% 500 ML INFUS.BAG IV ONE (18:28)
[2020-11-12] MEDS ORDERED: KETOROLAC TROMETHAMINE 15 MG/ML VIAL IVPUSH ONE (18:35)
[2020-11-12] MEDS ORDERED: KETOROLAC TROMETHAMINE 15 MG/ML VIAL ONE (18:36)
[2020-11-12 19:10] VITALS: BP 127/75; PULSE 76
== END 2020-11-12 19:30 | disposition home or self-care (01) ==
LOC: FER 16:58
PROC: 3E0333Z Introduction of Anti-inflammatory into Peripheral Vein, Percutaneous Approach (ICD-10-PCS; principal; 2020-11-12)
DX: R42 Dizziness and giddiness (principal); R51.9 Headache, unspecified
CPT/HCPCS: 36415; 70450-TC; 71045-TC-FY; 80053; 82550; 83735; 84100; 84484; 85025; 93005; 99285-25

== ENCOUNTER 2021-02-17 18:19 | Emergency (ER) | payer OTHER ==
[2021-02-17 18:38] VITALS: BP 150/85; PULSE 56; TEMP 98.3; BMI 26.2
[2021-02-17] MEDS ORDERED: ACETAMINOPHEN 325 MG TABLET (FP) PO ONE (18:38)
[2021-02-17] MEDS ORDERED: ACETAMINOPHEN 325 MG TABLET (FP) ONE (18:40)
== END 2021-02-17 20:59 | disposition home or self-care (01) ==
LOC: FER 18:19
DX: R51.9 Headache, unspecified (principal); W19.XXXA Unspecified fall, initial encounter
CPT/HCPCS: 70450-TC; 99284-25

== ENCOUNTER 2021-06-15 17:40 | Emergency (ER) | payer OTHER ==
[2021-06-15 18:05] VITALS: BP 145/70; PULSE 64; TEMP 98.6; BMI 25.6
[2021-06-15 19:26] LABS: EPITHELIAL CELLS FEW /hpf
== END 2021-06-15 19:23 | disposition home or self-care (01) ==
LOC: FER 17:40
DX: R35.89 Other polyuria (principal); J06.9 Acute upper respiratory infection, unspecified
CPT/HCPCS: 71045-TC-FY; 81003; 81015; 87086; 87804; 87807; 99284-25; C9803; U0003; U0005

== ENCOUNTER 2023-08-28 14:16 | Emergency (ER) | payer OTHER ==
[2023-08-28 14:47] VITALS: PULSE 77; RESP 20; TEMP 98.2; BMI 24.7
[2023-08-28] MEDS ORDERED: ACETAMINOPHEN 500 MG TABLET (FP) ONE (15:05)
[2023-08-28] MEDS: ACETAMINOPHEN 325 MG TABLET (FP) PO ONE (15:07)
[2023-08-28 16:11] VITALS: BP 125/57
== END 2023-08-28 17:35 | disposition home or self-care (01) ==
LOC: FER 14:16
DX: S09.90XA Unspecified injury of head, initial encounter (principal); W01.190A Fall on same level from slipping, tripping and stumbling with subsequent striking against furniture, initial encounter
CPT/HCPCS: 70450-TC; 72125-TC; 99284-25